=== PATIENT | female | born 1950 | race Caucasian/White ===

== ENCOUNTER → 2017-02-01 | Outpatient (CLI) | payer MEDICARE ==
--- NOTE | 2017-02-02 14:48 | MM ---
Reason for exam: screening (asymptomatic). Last mammogram was performed 1 year and 1 month ago. History: Patient is postmenopausal. Family history of breast cancer in sister at age 68, breast cancer in sister at age 59, and premenopausal breast cancer in mother at age 47. Benign US right guided mammotome of the right breast, August 15, 2007. Benign US right guided mammotome of the right breast, August 15, 2007. Benign excisional biopsy of the right breast, 1995. Took estrogen for 11 years 7 months beginning at age 46. Took progesterone for 11 years 7 months beginning at age 46. Physical Findings: A clinical breast exam by your physician is recommended on an annual basis and results should be correlated with mammographic findings. MG 3D Screening Mammo W/Cad Bilateral CC and MLO view(s) were taken. Prior study comparison: January 11, 2016, bilateral MG 3d screening mammo w/cad. January 06, 2015, bilateral MG screening mammo w CAD. The breast tissue is heterogeneously dense. This may lower the sensitivity of mammography. Finding: There are new calcifications in the lower inner quadrant, middle posterior depth of the right breast. No suspicious abnormality in the left breast. ASSESSMENT: Incomplete: need additional imaging evaluation, BI-RAD 0 RECOMMENDATION: Special view mammogram of the right breast. [facility] will attempt to contact patient to return for supplemental views.
== END | disposition home or self-care (01) ==
LOC: RADMAMWWP 06:59
PROVIDERS: ATTEND Obstetrics & Gynecology
DX: Z12.31 Encounter for screening mammogram for malignant neoplasm of breast (principal)
CPT/HCPCS: 77063; G0202

== ENCOUNTER → 2017-02-07 | Outpatient (CLI) | payer MEDICARE ==
--- NOTE | 2017-02-08 11:42 | MM ---
Reason for exam: additional evaluation requested from abnormal screening. Last mammogram was performed less than 1 month ago. History: Patient is postmenopausal. Family history of breast cancer in sister at age 68, breast cancer in sister at age 59, and premenopausal breast cancer in mother at age 47. Benign US right guided mammotome of the right breast, August 15, 2007. Benign US right guided mammotome of the right breast, August 15, 2007. Benign excisional biopsy of the right breast, 1995. Took estrogen for 11 years 7 months beginning at age 46. Took progesterone for 11 years 7 months beginning at age 46. Physical Findings: Nurse did not find any significant physical abnormalities on exam. MG 3D Work Up W/Cad RT CC and MLO view(s) were taken of the right breast. Prior study comparison: February 01, 2017, bilateral MG 3d screening mammo w/cad. January 11, 2016, bilateral MG 3d screening mammo w/cad. January 06, 2015, bilateral MG screening mammo w CAD. The breast tissue is heterogeneously dense. This may lower the sensitivity of mammography. There is a persistent 5mm mass on additional views in the lower inner quadrant on the left with internal calcifications. These results were verbally communicated with the patient and result sheet given to the patient on 02/07/17. ASSESSMENT: Incomplete: need additional imaging evaluation, BI-RAD 0 RECOMMENDATION: Ultrasound of the right breast.
--- NOTE | 2017-02-08 11:44 | USB ---
Reason for exam: additional evaluation requested from abnormal screening. History: Patient is postmenopausal. Family history of breast cancer in sister at age 68, breast cancer in sister at age 59, and premenopausal breast cancer in mother at age 47. Benign US right guided mammotome of the right breast, August 15, 2007. Benign US right guided mammotome of the right breast, August 15, 2007. Benign excisional biopsy of the right breast, 1995. Took estrogen for 11 years 7 months beginning at age 46. Took progesterone for 11 years 7 months beginning at age 46. US Breast Workup Limited RT Right breast ultrasound demonstrates a 11 x 6 x 4mm solid lesion at 6 o'clock corresponds to mammographic mass. These results were verbally communicated with the patient and result sheet given to the patient on 02/07/17. ASSESSMENT: Highly suggestive of malignancy, BI-RAD 5 RECOMMENDATION: Stereotactic core biopsy of the right breast. (to ensure calcifications) Called Dr. Robbins with mammographic findings and has scheduled an appointment for the patient for 03/07/17 at 1:[address] Jamil. Biopsy scheduled for 02/13/17 at 9:30. PRELIMINARY REPORT CALLED AND FAXED TO DR. JAMIL ON 02/09/17.
== END | disposition home or self-care (01) ==
LOC: RADMAMWWP 07:00
PROVIDERS: ATTEND Obstetrics & Gynecology
DX: R92.8 Other abnormal and inconclusive findings on diagnostic imaging of breast (principal)
CPT/HCPCS: 76642; G0206; G0279

== ENCOUNTER → 2017-02-13 | Day surgery (SDC) | payer MEDICARE ==
[2017-02-13 09:05] VITALS: PULSE 65; BMI 30.6
[2017-02-13 10:23] VITALS: BP 139/84; RESP 16; TEMP 97.5
--- NOTE | 2017-02-13 11:21 | MM ---
EXAMINATION TYPE: MG stereo VAD BX RT DATE OF EXAM: 02/13/2017 COMPARISON: Prior mammogram February 07 and February 01, 2017 and older studies. CLINICAL HISTORY: Abnormal mammogram TECHNIQUE: Stereotactic guided core biopsy of right breast with clip placement and follow-up two-view mammogram. FINDINGS: The procedure of stereotactic guided core biopsy was explained to the patient. Benefits, alternatives, and risks were discussed. An informed consent was then obtained. The shortness pathway for biopsy was chosen. Shortness pathway was inferior approach. I performed the localization, then performed the remainder of the procedure. Overlying skin is cleansed. Lidocaine issues as anesthetic into the skin. Lidocaine with epinephrine is used as anesthetic into the deeper tissue. A vacuum assisted biopsy gun was used to obtain multiple core samples. The patient tolerated the procedure well without any immediate complication. The patient was kept in the radiology department for short stay after the procedure and then discharged home in stable condition. Targeted calcifications are identified in specimen mammogram. Post biopsy mammogram shows the clip to appear in satisfactory position approximately 5 to 7 mm inferior relative to the targeted area of concern on the preprocedure images. IMPRESSION: SUCCESSFUL, UNCOMPLICATED STEREOTACTIC GUIDED CORE BIOPSY OF AREA OF CONCERN IN THE RIGHT BREAST, FULL PATHOLOGY RESULTS TO FOLLOW. Low index of suspicion noted at time of procedure. 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 SEE SURGICAL PATHOLOGY CANCER CASE SUMMARY AND COMMENT. Recommendation Surgical consult of the right breast. Note: 5-7mm inferior migration of the biopsy marker on post procedural mammogram of 02/13/17. MTDD
== END ==
LOC: RADMAMWWP 08:28
PROVIDERS: ATTEND Surgery
DX: D05.11 Intraductal carcinoma in situ of right breast (principal); D24.1 Benign neoplasm of right breast; Z17.0 Estrogen receptor positive status [ER+]
CPT/HCPCS: 88305; 88342; 88341; 19081; A4648; J2001

== ENCOUNTER 2017-04-17 09:14 | Day surgery (SDC) | payer MEDICARE ==
[2017-04-12 15:52] VITALS: BMI 30.4
[~2017-04-17 09:14] MED LIST: HEPARIN SODIUM,PORCINE 5,000 UNIT/ML 1 ML VIAL SQ ONE; Pre Op ABX Message 1 EACH MISC MISCELLANE ONE
[2017-04-17] MEDS ORDERED: ALPRAZolam 0.5 MG TAB PO ONE (09:29)
[2017-04-17] MEDS ORDERED: LACTATED RINGERS 1,000 ML IV ONE ×2 (09:39→13:46)
[2017-04-17] MEDS ORDERED: LIDOCAINE 1% 20 ML VIAL (10MG/ML) FOR IV START INTRADERMA ONE (09:40)
[2017-04-17] MEDS ORDERED: ONDANSETRON 4 MG/2 ML VIAL IVP ONE (09:42)
[2017-04-17] MEDS ORDERED: LIDOCAINE 1% INJ 10MG/ML (20 ML MDV) SQ ONE (10:30)
[2017-04-17] MEDS ORDERED: fentaNYL (PF) 50 MCG/ML 2 ML AMP ONE (11:59)
[2017-04-17] MEDS ORDERED: SUCCINYLCHOLINE CHLORIDE 100 MG/5 ML SYR IV ONE (11:59)
[2017-04-17] MEDS ORDERED: LIDOCAINE 1% INJ 10MG/ML (20 ML MDV) ONE (11:59)
[2017-04-17] MEDS ORDERED: PROPOFOL 10 MG/ML 20 ML VIAL IV ONE (11:59)
[2017-04-17] MEDS ORDERED: MIDAZOLAM 2 MG/2 ML VIAL ONE (11:59)
[2017-04-17] MEDS ORDERED: SODIUM CHLORIDE 0.9% 50 ML with ceFAZolin 2,000 MG IV ONE ×2 (12:15)
[2017-04-17] MEDS ORDERED: NALOXONE 0.4 MG/ML 1 ML VIAL IV PRN (12:50)
--- NOTE | 2017-04-17 12:54 | P.OP ---
Date of Procedure: 04/17/17 Procedure(s) Performed: PREOPERATIVE DIAGNOSIS: Right breast cancer POSTOPERATIVE DIAGNOSIS: Same PROCEDURE: Right Breast wire localization lumpectomy with BioSorb placement SURGEON: Omero EBL: Minimal ANESTHESIA: Sedation plus local COMPLICATIONS: None OPERATIVE PROCEDURE: Patient was placed on the operating room table in the supine position. The patient's breast was prepped and draped in usual sterile fashion. A curvilinear incision was made along the inferior periareolar border. Dissection through the subcutaneous tissues took place inferiorly until the wire was identified. The wire was then brought out through the incision site. I followed the wire down into the breast tissue. The breast tissue around the tip of the wire was fully excised using electrocautery. Our lateral margin felt somewhat indurated. I decided to remove an additional portion of lateral breast tissue labeled new lateral margin. This was sent for permanent sectioning. The specimen was sent for specimen radiogram. The clip was present within the specimen. The subcutaneous tissues were inspected. No bleeding was seen. The BioSorb sizers were utilized. A 2.0 x 3.0 cm BioSorb was placed into the operative site and sutured using 3-0 Vicryl sutures. The subcutaneous tissues were closed using 3-0 Vicryl sutures. The skin was closed using a running 4-0 Monocryl stitch. Steri-Strips and sterile dressings were applied. The lumpectomy specimen was painted the appropriate 6 colors and the new lateral margin was painted on the new lateral outer margin using the Sterling ink. DISPOSITION: Stable to recovery room
[2017-04-17 13:02] VITALS: TEMP 97.7
[2017-04-17 14:01] VITALS: RESP 18
[2017-04-17 14:26] VITALS: BP 125/71; PULSE 59
--- NOTE | 2017-04-17 17:36 | MM ---
EXAMINATION TYPE: MG pre op needle loc RT, MG surgical specimen RT DATE OF EXAM: 04/17/2017 COMPARISON: 02/01/2017 and 02/07/2017 CLINICAL HISTORY: 66-year-old female with biopsy-proven DCIS and papilloma in the right breast. TECHNIQUE: Needle localization with wire placement and surgical excision of area of concern in the 6:00 posterior right breast. FINDINGS: The procedure of needle localization with wire placement and than surgical excision was explained to the patient. Benefits, alternatives, and risks were discussed. An informed consent was then obtained. The shortest pathway for procedure was chosen. Shortest pathway was an inferior approach. The overlying skin was prepped and draped in usual sterile fashion. Lidocaine was used as anesthetic into the skin and subcutaneous tissue up to the level of area of concern. A 5 cm Kopans needle was used. It was placed via an inferior approach under mammographic guidance. Subsequent 90 degrees mammogram show the needle to be in satisfactory position relative to the targeted area. At this point, wire was placed and the needle was withdrawn. The wire was fixed to patient's skin. Images were marked for surgeon. The patient tolerated the procedure well without any immediate complication. The patient was kept in the radiology department for short stay after the procedure and then taken to surgery for surgical excision. The wire and biopsy clip are identified in specimen mammogram. The patient was kept in hospital for short stay after the procedure and then discharged home in stable condition. IMPRESSION: Successful, uncomplicated needle localization with wire placement and surgical excision of biopsy-proven DCIS and papilloma in the 6:00 posterior right breast , full pathology results to follow. Pathology Results: Malignant A. 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 DCIS IS IMMEDIATELY ADJACENT TO THE PURPLE (POSTERIOR) MARGIN, AND MUCH LESS THAN 1 MM FROM THE BLACK/YELLOW (SUPERIOR/MEDIAL) MARGIN. SEE SURGICAL PATHOLOGY CANCER CASE SUMMARY AND COMMENT. B. BREAST, RIGHT, NEW LATERAL MARGIN, EXCISION: BENIGN BREAST WITH FIBROCYSTIC CHANGES INCLUDING CYSTS, FIBROSIS, COLUMNAR CELL HYPERPLASIA, SCLEROSING ADENOSIS, APOCRINE METAPLASIA, CALCIFICATIONS AND RADIAL SCAR. Recommendation Surgical consult of the right breast. ALECIA
== END 2017-04-17 14:36 | disposition home or self-care (01) ==
LOC: OR 09:14
PROVIDERS: ATTEND Surgery
DX: C50.311 Malignant neoplasm of lower-inner quadrant of right female breast (principal); Z17.0 Estrogen receptor positive status [ER+]; I10 Essential (primary) hypertension; Z79.2 Long term (current) use of antibiotics; Z79.899 Other long term (current) drug therapy
CPT/HCPCS: 19301; 15777; 76098; 19281; A4648; J2250; J1644; J2405; J2001; J3010; J0690; J0330; J2704; 88307; 88341; 88342

== ENCOUNTER 2017-05-04 08:11 | Day surgery (SDC) | payer MEDICARE ==
[2017-05-03 09:01] VITALS: BMI 30.4
[~2017-05-04 08:11] MED LIST changes: +DEXAMETHASONE SOD PHOSPHATE 10 MG/ML 1 ML VIAL IV ONE; +LACTATED RINGERS 1,000 ML IV SCH; +MIDAZOLAM 2 MG/2 ML VIAL IV PRN; +MORPHINE SULFATE 4 MG/ML SYRINGE IV PRN; +ONDANSETRON 4 MG/2 ML VIAL IVP ONE
[2017-05-04] MEDS ORDERED: LIDOCAINE 1% 20 ML VIAL (10MG/ML) FOR IV START INTRADERMA ONE (08:52)
[2017-05-04] MEDS ORDERED: fentaNYL (PF) 50 MCG/ML 2 ML AMP ONE (09:42)
[2017-05-04] MEDS ORDERED: LIDOCAINE 1% INJ 10MG/ML (20 ML MDV) ONE (09:42)
[2017-05-04] MEDS ORDERED: SUCCINYLCHOLINE CHLORIDE 100 MG/5 ML SYR IV ONE (09:42)
[2017-05-04] MEDS ORDERED: PROPOFOL 10 MG/ML 20 ML VIAL IV ONE (09:42)
[2017-05-04] MEDS ORDERED: MIDAZOLAM 2 MG/2 ML VIAL ONE (09:42)
[2017-05-04] MEDS ORDERED: ePHEDrine SULFATE/0.9% NACL/PF 50 MG/5 ML SYRINGE IV ONE (09:42)
[2017-05-04] MEDS ORDERED: SODIUM CHLORIDE 0.9% 50 ML with ceFAZolin 2,000 MG IV ONE ×2 (09:56)
[2017-05-04] MEDS ORDERED: BUPIVACAINE (PF) 0.25% 30 ML VIAL SQ ONE (10:20)
[2017-05-04 10:59] VITALS: TEMP 98.8
[2017-05-04] MEDS ORDERED: NALOXONE 0.4 MG/ML 1 ML VIAL IV PRN (11:07)
[2017-05-04] MEDS ORDERED: HYDROcodone/APAP 5-325MG 1 EACH TAB PO PRN (11:07)
--- NOTE | 2017-05-04 11:10 | P.OP ---
Date of Procedure: 05/04/17 Procedure(s) Performed: PREOPERATIVE DIAGNOSIS: Right breast cancer POSTOPERATIVE DIAGNOSIS: Same PROCEDURE: Right breast re-lumpectomy SURGEON: Omero EBL: Minimal ANESTHESIA: Gen. COMPLICATIONS: None OPERATIVE PROCEDURE: Patient was placed in the operative table in the supine position. The right breast was prepped and draped in usual sterile fashion. Using the scalpel the previous scar site was excised sharply and the lumpectomy cavity was dissected and excised. The medial superior and posterior lumpectomy damon were completely excised. A portion of the anterior and inferior damon of the lumpectomy cavity were also removed. The previous BioSorb was removed. A Ligaclip was used to define the lumpectomy cavity circumferentially for radiation oncology. The subcutaneous tissues were then closed using 3-0 Vicryl sutures and the skin using a running 4-0 Monocryl stitch. Steri-Strips and sterile dressings were applied. DISPOSITION: Stable to recovery room
[2017-05-04 12:27] VITALS: BP 109/73; PULSE 58; RESP 18
== END 2017-05-04 12:41 | disposition home or self-care (01) ==
LOC: OR 08:11
PROVIDERS: ATTEND Surgery
DX: C50.311 Malignant neoplasm of lower-inner quadrant of right female breast (principal); Z17.0 Estrogen receptor positive status [ER+]; I10 Essential (primary) hypertension; E78.5 Hyperlipidemia, unspecified; E07.9 Disorder of thyroid, unspecified; Z80.9 Family history of malignant neoplasm, unspecified; Z79.2 Long term (current) use of antibiotics; Z79.899 Other long term (current) drug therapy
CPT/HCPCS: 19301; J2250; J1644; J1100; J2405; J2001; J3010; J0690; J0330; J2704; 88307; 88342

== ENCOUNTER → 2017-10-30 | Outpatient (CLI) | payer MEDICARE ==
--- NOTE | 2017-10-30 11:10 | BD ---
EXAMINATION TYPE: Axial Bone Density DATE OF EXAM: 10/30/2017 CLINICAL HISTORY: Postmenopausal female with history of breast cancer. Height: 64.25 Weight: 168.9 Comparison: Prior DEXA bone scan January 11, 2016 FRAX RISK QUESTIONS: Alcohol (3 or more units per day): no Family History (Parent hip fracture): no Glucocorticoids (More than 3mos): no (Ex: prednisone, prednisolone, methylprednisolone, dexamethasone, and hydrocortisone). History of Fracture in Adulthood: unsure Secondary Osteoporosis: 1. Type 1 Diabetes: no 2. Hyperthyroidism: no 3. Menopause before 45: no, 45 4. Malnutrition: no 5. Chronic liver disease: no Rheumatoid Arthritis: no Current Tobacco Use: no RISK FACTORS HISTORY OF Family History of Osteoporosis: no Active: yes Diet low in dairy products/other sources of calcium: no Postmenopausal woman: yes Take estrogen and/or progesterone medications: not now How long: about 11 1/2 years Lost more than 2 inches in height since high school: states may have been 66 inches tall at one time Frequent falls: no Poor Health: hx breast ca, but otherwise good health Hyperparathyroidism: no Adrenal Insufficiency: no MEDICATIONS: Prednisone or other steroids: no Thyroid Medications: yes Which medication: Levothyroxine How Long: over 10 years Osteoporosis Medications: no Additional Medications: antineoplastic Additional History: Breast CA 2017, radiation EXAM MEASUREMENTS: Bone mineral densitometry was performed using the [employer]. Bone mineral density as measured about the Lumbar spine is: ----- L1-L4(G/cm2): 1.301 T Score Values are as follows: ----- L2: 1.2 ----- L3: 1.9 ----- L4: 0.2 ----- L1-L4: 1.0 Bone mineral density has: Decreased -2.8% since study of: 01/11/2016 Bone mineral density about the R hip (g/cm2): 0.868 Bone mineral density about the L hip (g/cm2): 0.916 T Score values are as follows: -----R Neck: -1.2 -----L Neck: -0.9 -----R Total: -0.5 -----L Total: 0.1 Bone mineral density has: Decreased -2.2% since study of: 01/11/2016 IMPRESSION: Osteopenia (T Score between -2.5 and -1) is now present femoral neck level right hip. Bone density de creased or diminished from prior. There is slightly increased risk of fracture and the patient may be considered for treatment. Re-Screen 2-5 years. NOTE: T-SCORE=SD OF THE YOUNG ADULT MEAN.
== END | disposition home or self-care (01) ==
LOC: RADBDWWP 07:58
PROVIDERS: ATTEND Internal Medicine Hematology & Oncology
DX: D05.11 Intraductal carcinoma in situ of right breast (principal); M85.851 Other specified disorders of bone density and structure, right thigh; Z79.890 Hormone replacement therapy
CPT/HCPCS: 77080

== ENCOUNTER → 2018-02-14 | Outpatient (CLI) | payer MEDICARE ==
--- NOTE | 2018-02-14 12:06 | MM ---
Reason for exam: additional evaluation requested from prior study. Last mammogram was performed 1 year ago. History: Patient is postmenopausal and has history of breast cancer at age 66. Family history of breast cancer in sister at age 68, breast cancer in sister at age 59, and premenopausal breast cancer in mother at age 47. Malignant MG pre op needle loc RT of the right breast, April 17, 2017. Lumpectomy of the right breast, April 17, 2017. Malignant MG stereo VAD BX RT of the right breast, February 13, 2017. Benign US right guided mammotome of the right breast, August 15, 2007. Benign US right guided mammotome of the right breast, August 15, 2007. Benign excisional biopsy of the right breast, 1995. Took estrogen for 11 years 7 months beginning at age 46. Took progesterone for 11 years 7 months beginning at age 46. Physical Findings: Nurse did not find any significant physical abnormalities on exam. MG 3D Diag Mammo W/Cad [facility] Bilateral CC and MLO view(s) were taken. Prior study comparison: February 07, 2017, right breast MG 3d work up w/cad RT. February 01, 2017, bilateral MG 3d screening mammo w/cad. The breast tissue is heterogeneously dense. This may lower the sensitivity of mammography. Left focal asymmetry upper outer quadrant at middle depth that appears improved from priors. Post therapy change on the left. These results were verbally communicated with the patient and result sheet given to the patient on 02/14/18. ASSESSMENT: Incomplete: need additional imaging evaluation, BI-RAD 0 RECOMMENDATION: Ultrasound of the left breast. (upper outer quadrant and upper inner quadrant)
--- NOTE | 2018-02-14 12:08 | USB ---
Reason for exam: additional evaluation requested from abnormal screening. History: Patient is postmenopausal and has history of breast cancer at age 66. Family history of breast cancer in sister at age 68, breast cancer in sister at age 59, and premenopausal breast cancer in mother at age 47. Malignant MG pre op needle loc RT of the right breast, April 17, 2017. Lumpectomy of the right breast, April 17, 2017. Malignant MG stereo VAD BX RT of the right breast, February 13, 2017. Benign US right guided mammotome of the right breast, August 15, 2007. Benign US right guided mammotome of the right breast, August 15, 2007. Benign excisional biopsy of the right breast, 1995. Took estrogen for 11 years 7 months beginning at age 46. Took progesterone for 11 years 7 months beginning at age 46. US Breast Limited LT Left limited breast ultrasound including focal area of concern, retroareolar and axilla demonstrates a lymph node at the axilla, a 0.5 x 0.2 x 0.4cm lesion too small to characterize at 11 o'clock, a 0.4 x 0.3cm lesion too small to characterize at 11 o'clock and a 0.3 x 0.3cm lesion too small to characterize at 4 o'clock. No convincing correlate to mammographic finding. 6 month follow up ultrasound and mammogram recommended. These results were verbally communicated with the patient and result sheet given to the patient on 02/14/18. ASSESSMENT: Probably benign, BI-RAD 3 RECOMMENDATION: Follow-up diagnostic mammogram and ultrasound of the left breast in 6 months.
== END | disposition home or self-care (01) ==
LOC: RADMAMWWP 08:55
PROVIDERS: ATTEND Radiology Radiation Oncology
DX: D05.11 Intraductal carcinoma in situ of right breast (principal); Z85.3 Personal history of malignant neoplasm of breast
CPT/HCPCS: 77066; 76642; G0279; 77062

== ENCOUNTER → 2018-08-16 | Outpatient (CLI) | payer MEDICARE ==
--- NOTE | 2018-08-16 10:33 | USB ---
Reason for exam: follow-up at short interval from prior study. History: Patient is postmenopausal and has history of breast cancer at age 66. Family history of breast cancer in sister at age 68, breast cancer in sister at age 59, and premenopausal breast cancer in mother at age 47. Malignant MG pre op needle loc RT of the right breast, April 17, 2017. Lumpectomy of the right breast, April 17, 2017. Malignant MG stereo VAD BX RT of the right breast, February 13, 2017. Benign US right guided mammotome of the right breast, August 15, 2007. Benign US right guided mammotome of the right breast, August 15, 2007. Benign excisional biopsy of the right breast, 1995. Took estrogen for 11 years 7 months beginning at age 46. Took progesterone for 11 years 7 months beginning at age 46. Physical Findings: Nurse did not find any significant physical abnormalities on exam. US Breast LT Left complete breast ultrasound includes all four quadrants, the retroareolar region and axilla. Finding demonstrates no cystic or solid lesion seen. These results were verbally communicated with the patient and result sheet given to the patient on 08/16/18. ASSESSMENT: Incomplete: need additional imaging evaluation, BI-RAD 0 RECOMMENDATION: Follow-up diagnostic mammogram of the left breast.
--- NOTE | 2018-08-16 10:36 | MM ---
Reason for exam: additional evaluation requested from abnormal screening. Last mammogram was performed 6 months ago. History: Patient is postmenopausal and has history of breast cancer at age 66. Family history of breast cancer in sister at age 68, breast cancer in sister at age 59, and premenopausal breast cancer in mother at age 47. Malignant MG pre op needle loc RT of the right breast, April 17, 2017. Lumpectomy of the right breast, April 17, 2017. Malignant MG stereo VAD BX RT of the right breast, February 13, 2017. Benign US right guided mammotome of the right breast, August 15, 2007. Benign US right guided mammotome of the right breast, August 15, 2007. Benign excisional biopsy of the right breast, 1995. Took estrogen for 11 years 7 months beginning at age 46. Took progesterone for 11 years 7 months beginning at age 46. MG 3D Diag Mammo W/Cad LT CC, MLO, and XCCL view(s) were taken of the left breast. Prior study comparison: February 14, 2018, bilateral MG 3d diag mammo w/cad [facility]. February 07, 2017, right breast MG 3d work up w/cad RT. The breast tissue is heterogeneously dense. This may lower the sensitivity of mammography. Finding: New equal spiculated architectural distortion in the upper inner quadrant, middle position of the left breast. There is no discrete abnormality at previous abnormality. New finding since February 14, 2018 and February 07, 2017. These results were verbally communicated with the patient and result sheet given to the patient on 08/16/18. ASSESSMENT: Probably benign, BI-RAD 3 RECOMMENDATION: Follow-up diagnostic mammogram of both breasts in 6 months. Back on schedule.
== END | disposition home or self-care (01) ==
LOC: RADUSWWP 07:07
PROVIDERS: ATTEND Radiology Radiation Oncology
DX: D05.11 Intraductal carcinoma in situ of right breast (principal); R92.8 Other abnormal and inconclusive findings on diagnostic imaging of breast; Z92.3 Personal history of irradiation
CPT/HCPCS: 77065; 76641; G0279; 77061

== ENCOUNTER → 2018-09-19 | Outpatient (CLI) | payer MEDICARE ==
--- NOTE | 2018-09-20 08:30 | MM ---
Reason for exam: additional evaluation requested from abnormal screening. Last mammogram was performed 1 month ago. History: Patient is postmenopausal and has history of breast cancer at age 66. Family history of breast cancer in sister at age 68, breast cancer in sister at age 59, and premenopausal breast cancer in mother at age 47. Malignant MG pre op needle loc RT of the right breast, April 17, 2017. Lumpectomy of the right breast, April 17, 2017. Malignant MG stereo VAD BX RT of the right breast, February 13, 2017. Benign US right guided mammotome of the right breast, August 15, 2007. Benign US right guided mammotome of the right breast, August 15, 2007. Benign excisional biopsy of the right breast, 1995. Took estrogen for 11 years 7 months beginning at age 46. Took progesterone for 11 years 7 months beginning at age 46. Physical Findings: Breast exam performed July 2018. MG 3D Work Up W/Cad LT Spot compression CC, spot compression MLO, and LM view(s) were taken of the left breast. Prior study comparison: August 16, 2018, left breast MG 3d diag mammo w/cad LT. February 14, 2018, bilateral MG 3d diag mammo w/cad [facility]. The breast tissue is heterogeneously dense. This may lower the sensitivity of mammography. Persistent distortion spot 3D 17/71 CC view, 5.7cm from nipple. Persistent distortion spot 3D 35/64 MLO view, 4.6cm from nipple. Punctate calcification at posterior margin. These results were verbally communicated with the patient and result sheet given to the patient on 09/19/18. ASSESSMENT: Suspicious, BI-RAD 4 RECOMMENDATION: Stereotactic core biopsy of the left breast. Biopsy is recommended, alternatively MRI could be performed to assess for correlate to biopsy under MRI guidance Yajaira from Dr. Stanton's office will call patient on 09/20/18 for further instructions on how to process. PRELIMINARY REPORT CALLED AND FAXED TO DR. STANTON ON 09/20/18.
== END | disposition home or self-care (01) ==
LOC: RADMAMWWP 14:11
PROVIDERS: ATTEND Radiology Radiation Oncology
DX: D05.11 Intraductal carcinoma in situ of right breast (principal); Z92.3 Personal history of irradiation
CPT/HCPCS: 77065; G0279; 77061

== ENCOUNTER 2018-12-27 08:24 | Day surgery (SDC) | payer MEDICARE ==
[2018-12-25 11:40] VITALS: BMI 29.9
[~2018-12-27 08:24] MED LIST changes: -HEPARIN SODIUM,PORCINE 5,000 UNIT/ML 1 ML VIAL SQ ONE; +HYDROmorphone 0.5 MG/0.5 ML SYRINGE IVP PRN; +LIDOCAINE 1% 20 ML VIAL (10MG/ML) FOR IV START INTRADERMA PRN; -MORPHINE SULFATE 4 MG/ML SYRINGE IV PRN; +ONDANSETRON 4 MG/2 ML VIAL IVP PRN
[2018-12-27] MEDS ORDERED: ALPRAZolam 0.25 MG TAB PO ONE (09:14)
--- NOTE | 2018-12-27 09:32 | P.GSHP ---
History of Present Illness H&P Date: 12/27/18 Chief Complaint: Abnormal left mammogram 68-year-old female known to our service. Patient known from previous right breast lumpectomy for malignancy in 2016. On recent mammogram in July the patient was found to have a new spiculated area of distortion left breast. On ultrasound was performed which was negative. Compression views were obtained which showed persistent distortion. Stereotactic biopsy was advised. Patient underwent biopsy at [facility]. Biopsy showed radial scar. Excisional biopsy was recommended. Patient remains on endocrine therapy for her right breast cancer. She does have a significant family history of breast cancer. Patient's genetic screening showed a potentially relevant variant. Patient otherwise asymptomatic. Past Medical History Past Medical History: Cancer, Hyperlipidemia, Hypertension, Thyroid Disorder Additional Past Medical History / Comment(s): RIGHT BREAST CANCER, History of Any Multi-Drug Resistant Organisms: None Reported Past Surgical History: Orthopedic Surgery, Tonsillectomy Additional Past Surgical History / Comment(s): spleenectomy, Right foot surgery, RT BREAST BX, RIGHT BREAST Lumpectomy, COLONOSCOPY, Past Anesthesia/Blood Transfusion Reactions: Postoperative Nausea & Vomiting (PONV) Additional Past Anesthesia/Blood Transfusion Reaction / Comment(s): trouble waking up afer surgery- takes longer to wake up" Smoking Status: Never smoker - Past Family History Mother Family Medical History: Cancer Additional Family Medical History / Comment(s): breast cancer Sister(s) Family Medical History: Cancer Additional Family Medical History / Comment(s): 2 SISTERS WITH BREAST CANCER Medications and Allergies Home Medications Medication Instructions Recorded Confirmed Type Cholecalciferol (Vitamin D3) 2,000 unit PO DAILY 02/09/17 12/27/18 History [Vitamin D3] Levothyroxine Sodium 88 mcg PO DAILY 02/09/17 12/27/18 History Simvastatin [Zocor] 20 mg PO HS 02/09/17 12/27/18 History Triamterene-Hctz 37.5-25Mg 1 each PO DAILY 02/09/17 12/27/18 History [Dyazide 37.5-25 Capsule] Calcium Carbonate/Vitamin D3 1 each PO DAILY 12/25/18 12/27/18 History [Calcium 600-Vit D3 200 Tablet] Letrozole [Femara] 2.5 mg PO DAILY 12/25/18 12/27/18 History Allergies Allergy/AdvReac Type Severity Reaction Status Date / Time adhesive tape Allergy RED Verified 12/27/18 09:02 SKIN,ITCHING Surgical - Exam Vital Signs Temp Pulse Resp BP Pulse Ox 97.8 F 55 L 16 144/76 96 12/27/18 09:06 12/27/18 09:06 12/27/18 09:06 12/27/18 09:06 12/27/18 09:06 Physical exam: General: Well-developed, well-nourished HEENT: Normocephalic, sclerae nonicteric Right breast: Previous lumpectomy, no masses, no adenopathy Left breast: No masses, no adenopathy Abdomen: Nontender, nondistended Extremities: No edema Neuro: Alert and oriented Assessment and Plan (1) Radial scar of breast Narrative/Plan: Will proceed with left breast wire localization biopsy at this time. Risks of bleeding, infection, scarring, numbness, possible for additional surgery reviewed. She understands and wishes to proceed. Current Visit: Yes Status: Acute Code(s): N64.89 - OTHER SPECIFIED DISORDERS OF BREAST SNOMED Code(s): 560104004
[2018-12-27] MEDS ORDERED: LIDOCAINE 1% INJ 10MG/ML (20 ML MDV) SQ ONE (10:17)
[2018-12-27] MEDS ORDERED: MIDAZOLAM 2 MG/2 ML VIAL ONE (10:57)
[2018-12-27] MEDS ORDERED: LIDOCAINE 1% INJ 10MG/ML (20 ML MDV) ONE (10:57)
[2018-12-27] MEDS ORDERED: fentaNYL (PF) 50 MCG/ML 2 ML AMP ONE (10:57)
[2018-12-27] MEDS ORDERED: PROPOFOL 10 MG/ML 20 ML VIAL IV ONE (10:57)
[2018-12-27] MEDS ORDERED: BUPIVACAIN-EPI 0.25%-1:200,000 30 ML VIAL SQ ONE (10:58)
[2018-12-27] MEDS ORDERED: SODIUM CHLORIDE 0.9% 50 ML with ceFAZolin 2,000 MG IV ONE ×2 (11:22)
[2018-12-27] MEDS ORDERED: NALOXONE 0.4 MG/ML 1 ML VIAL IV PRN (11:41)
--- NOTE | 2018-12-27 11:43 | MM ---
EXAMINATION TYPE: MG pre op needle loc LT, MG surgical specimen LT DATE OF EXAM: 12/27/2018 COMPARISON: 09/19/2018 and 08/16/2018 mammograms CLINICAL HISTORY: High risk lesion of the left breast for which needle localization was recommended. TECHNIQUE: Needle localization with wire placement and surgical excision of area of concern in the left breast. FINDINGS: The procedure of needle localization with wire placement and than surgical excision was explained to the patient. Benefits, alternatives, and risks were discussed. An informed consent was then obtained. Preprocedural timeout was performed. The shortest pathway for procedure was chosen. Shortest pathway was lateral to medial approach. The overlying skin was prepped and draped in usual sterile fashion. Lidocaine buffered with bicarbonate was used as anesthetic into the skin and subcutaneous tissue up to the level of area of concern. A 9 cm needle was used. It was placed via a lateral to medial approach under mammographic guidance. Subsequent 90 degrees mammogram show the needle to be in satisfactory position relative to the targeted area. At this point, wire was placed and the needle was withdrawn. The wire was fixed to patient's skin. Images were marked for surgeon. The patient tolerated the procedure well without any immediate complication. The patient was kept in the radiology department for short stay after the procedure and then taken to surgery for surgical excision. Targeted biopsy marker and wire are identified in specimen mammogram. The patient was kept in hospital for short stay after the procedure and then discharged home in stable condition. This was relayed to the OR by the stick roller and 1140 on 12/27/2018. IMPRESSION: Successful, uncomplicated needle localization with wire placement and surgical excision of a biopsy marker denoting the biopsy-proven high risk lesion in the left breast, full pathology results to follow. Pathology Results: Benign LEFT BREAST, NEEDLE LOCALIZATION EXCISION: Scar consistent with previous biopsy site and adjacent fibrocystic changes including focal mild usual type ductal hyperplasia, fibrosis and sclerosing adenosis with microcalcifications. Negative for malignancy. Recommendation Follow up mammogram of the left breast in 6 months. ALECIA
--- NOTE | 2018-12-27 11:43 | P.OP ---
Date of Procedure: 12/27/18 Procedure(s) Performed: PREOPERATIVE DIAGNOSIS: Abnormal left mammogram POSTOPERATIVE DIAGNOSIS: Same PROCEDURE: Left Breast wire localization biopsy SURGEON: Omero EBL: Minimal ANESTHESIA: Sedation plus local COMPLICATIONS: None OPERATIVE PROCEDURE: Patient was placed on the operating room table in the sup ine position. The patient's breast was prepped and draped in usual sterile fashion. A curvilinear incision was made adjacent to the wire entrance site. I followed the wire down into the breast tissue. The breast tissue around the tip of the wire was fully excised using electrocautery. The specimen was sent for specimen radiogram. The clip was present within the specimen. The subcutaneous tissues were inspected. No bleeding was seen. The subcutaneous tissues were closed using 3-0 Vicryl sutures. The skin was closed using a running 4-0 Monocryl stitch. Skin glue was then applied. DISPOSITION: Stable to recovery room
[2018-12-27 11:53] VITALS: TEMP 97.4
[2018-12-27 12:52] VITALS: BP 139/91; PULSE 57; RESP 20
== END 2018-12-27 13:10 | disposition home or self-care (01) ==
LOC: OR 08:24
PROVIDERS: ATTEND Surgery
DX: N60.12 Diffuse cystic mastopathy of left breast (principal); N60.92 Unspecified benign mammary dysplasia of left breast; N60.22 Fibroadenosis of left breast; I10 Essential (primary) hypertension; G47.33 Obstructive sleep apnea (adult) (pediatric); E07.9 Disorder of thyroid, unspecified; E78.5 Hyperlipidemia, unspecified; Z85.3 Personal history of malignant neoplasm of breast; Z80.3 Family history of malignant neoplasm of breast; Z79.890 Hormone replacement therapy; Z79.899 Other long term (current) drug therapy; Z79.811 Long term (current) use of aromatase inhibitors; Z91.048 Other nonmedicinal substance allergy status; Z90.81 Acquired absence of spleen; Z90.89 Acquired absence of other organs; Z98.890 Other specified postprocedural states
CPT/HCPCS: 19125; 88307; 76098; 19281; J2250; J1100; J2405; J0690; J2001; J3010; J2704

== ENCOUNTER → 2019-02-17 | Outpatient (CLI) | payer MEDICARE ==
--- NOTE | 2019-02-19 10:05 | MM ---
Reason for exam: additional evaluation requested from prior study. Last mammogram was performed 5 months ago. History: Patient is postmenopausal and has history of breast cancer at age 66. Family history of breast cancer in sister at age 68, breast cancer in sister at age 59, and premenopausal breast cancer in mother at age 47. Benign MG pre op needle loc LT of the left breast, December 27, 2018. Malignant MG pre op needle loc RT of the right breast, April 17, 2017. Lumpectomy of the right breast, April 17, 2017. Malignant MG stereo VAD BX RT of the right breast, February 13, 2017. Benign US right guided mammotome of the right breast, August 15, 2007. Benign US right guided mammotome of the right breast, August 15, 2007. Benign excisional biopsy of the right breast, 1995. Took estrogen for 11 years 7 months beginning at age 46. Took progesterone for 11 years 7 months beginning at age 46. Physical Findings: Nurse Summary: 1cm nodule in the left breast at 3 o'clock (nurse dw). MG 3D Diag Mammo W/Cad KHOA Bilateral CC and MLO view(s) were taken. LM and XCCL view(s) were taken of the right breast. Prior study comparison: September 19, 2018, left breast MG 3d work up w/cad LT. August 16, 2018, left breast MG 3d diag mammo w/cad LT. The breast tissue is heterogeneously dense. This may lower the sensitivity of mammography. No new suspicious abnormality. BB on left corresponds to recent post excisional change. These results were verbally communicated with the patient on 02/19/19. ASSESSMENT: Benign, BI-RAD 2 RECOMMENDATION: Follow-up diagnostic mammogram of both breasts in 1 year.
== END | disposition home or self-care (01) ==
LOC: RADMAMWWP 08:11
PROVIDERS: ATTEND Radiology Radiation Oncology
DX: R92.8 Other abnormal and inconclusive findings on diagnostic imaging of breast (principal); D05.11 Intraductal carcinoma in situ of right breast; Z92.3 Personal history of irradiation; Z17.0 Estrogen receptor positive status [ER+]
CPT/HCPCS: 77066; G0279; 77062

== ENCOUNTER → 2019-11-03 | Outpatient (CLI) | payer MEDICARE ==
--- NOTE | 2019-11-03 13:05 | BD ---
EXAMINATION TYPE: Axial Bone Density DATE OF EXAM: 11/03/2019 COMPARISON: NONE CLINICAL HISTORY: Height: 5 FT 5 IN Weight: 183 FRAX RISK QUESTIONS: Alcohol (3 or more units per day): NO Family History (Parent hip fracture): NO Glucocorticoids (More than 3mos): NO (Ex: prednisone, prednisolone, methylprednisolone, dexamethasone, and hydrocortisone). History of Fracture in Adulthood: NO Secondary Osteoporosis: 1. Type 1 Diabetes: NO 2. Hyperthyroidism: NO 3. Menopause before 45: NO 4. Malnutrition: NO 5. Chronic liver disease: NO Rheumatoid Arthritis: NO Current Tobacco Use: NO RISK FACTORS HISTORY OF: Active: YES Postmenopausal woman: AGE 45 Take estrogen and/or progesterone medications: TOOK HRT FOR 11 - 12 YEARS NOT NOW MEDICATIONS: Thyroid Medications: YES Which medication: LEVOTHYROXINE How Lon-20 YEARS Additional Medications: BLOOD PRESSURE, CHOLESTEROL MEDS, VIT D, ESTROGEN ISAAK , LEVOTHYROXINE Additional History: BREAST CANCER WITH RADIATION EXAM MEASUREMENTS: Bone mineral densitometry was performed using the [employer] System. Bone mineral density as measured about the Lumbar spine is: ----- L1-L4(G/cm2): 1.307 T Score Values are as follows: ----- L2: 1.5 ----- L3: 1.3 ----- L4: 0.1 ----- L1-L4: 1.1 Bone mineral density has: DECREASED -1.7 % since study of: 2017 Bone mineral density about the R hip (g/cm2): 0.844 Bone mineral density about the L hip (g/cm2): 0.903 T Score values are as follows: -----R Neck: -1.4 -----L Neck: -1.0 -----R Total: -0.7 -----L Total: -0.3 Bone mineral density has: DECREASED -1.7 % since study of: 2017 IMPRESSION: No evidence for osteoporosis or osteopenia. NOTE: T-SCORE=SD OF THE YOUNG ADULT MEAN.
== END | disposition home or self-care (01) ==
LOC: RADBDWWP 09:05
PROVIDERS: ATTEND Internal Medicine Hematology & Oncology
DX: M89.9 Disorder of bone, unspecified (principal); D05.11 Intraductal carcinoma in situ of right breast; Z79.890 Hormone replacement therapy
CPT/HCPCS: 77080

== ENCOUNTER 2019-12-11 06:26 | Day surgery (SDC) | payer MEDICARE ==
[2019-12-09 12:28] VITALS: BMI 30.4
[~2019-12-11 06:26] MED LIST changes: +ALPRAZolam 0.25 MG TAB PO PRN; +ALPRAZolam 0.5 MG TAB PO PRN; +ASPIRIN 325 MG TAB PO STA; +ATORVASTATIN 80 MG TAB PO STA; -DEXAMETHASONE SOD PHOSPHATE 10 MG/ML 1 ML VIAL IV ONE; -HYDROmorphone 0.5 MG/0.5 ML SYRINGE IVP PRN; -LACTATED RINGERS 1,000 ML IV SCH; -LIDOCAINE 1% 20 ML VIAL (10MG/ML) FOR IV START INTRADERMA PRN; -MIDAZOLAM 2 MG/2 ML VIAL IV PRN; +NITROGLYCERIN SL TABS 0.4 MG TAB SUBLINGUAL PRN; -ONDANSETRON 4 MG/2 ML VIAL IVP ONE; -ONDANSETRON 4 MG/2 ML VIAL IVP PRN; -Pre Op ABX Message 1 EACH MISC MISCELLANE ONE; +SODIUM CHLORIDE 0.9% 1,000 ML in EMPTY BAG 1 BAG IV ONE
[2019-12-11 07:00] VITALS: RESP 16; TEMP 98.1
[2019-12-11] MEDS ORDERED: LIDOCAINE 1% INJ 10MG/ML (20 ML MDV) ONE (07:07)
[2019-12-11] MEDS ORDERED: VERAPAMIL 2.5 MG/ML 2 ML AMP ONE (07:07)
[2019-12-11] MEDS ORDERED: fentaNYL (PF) 50 MCG/ML 2 ML AMP ONE (07:26)
[2019-12-11] MEDS ORDERED: fentaNYL (PF) 50 MCG/ML 2 ML AMP IVP ONE (07:30)
[2019-12-11] MEDS ORDERED: LIDOCAINE 1% INJ 10MG/ML (20 ML MDV) SQ ONE (07:33)
[2019-12-11] MEDS ORDERED: HEPARIN SODIUM 1,000 UN/ML (10ML VL) ONE (07:34)
[2019-12-11] MEDS: VERAPAMIL SYRINGE (5 MG/10 ML) INTRAARTER ONE ×2 (07:35→07:43)
[2019-12-11] MEDS ORDERED: HEPARIN SODIUM 1,000 UN/ML (10ML VL) IV ONE (07:43)
[2019-12-11] MEDS ORDERED: IOPAMIDOL-370 125ML BTL INJ ONE (07:44)
[2019-12-11] MEDS ORDERED: RX INFO: IV CONTRAST WAS GIVEN 1 EACH MISC MISCELLANE PRN (07:58)
[2019-12-11] MEDS ORDERED: SODIUM CHLORIDE 0.9% 1,000 ML IV SCH (08:00)
--- NOTE | 2019-12-11 08:20 | LTR ---
12/11/2019 RE: Mary Trevizot Dear Dr. Fu: I had the opportunity to perform cardiac catheterization on Mrs. Suárez at [facility] on 12/11/2019 and a full copy of the procedure note will be forwarded to you. In brief, she was found to have moderate disease involving the ostium of the second diagonal branch, the rest of her vessels have no evidence of high-grade stenosis. Based on those findings, I have recommended continue medical therapy with aggressive risk modifications being initiated. Thank you again for allowing me to participate in this patient's care. Please feel free to call with any questions. Sincerely yours, Paco Bolton M.D. HUSAM / MILLI: [phone] /
--- NOTE | 2019-12-11 08:20 | CC ---
CARDIAC CATHETERIZATION REPORT PROCEDURE PERFORMED: Cardiac catheterization. HISTORY OF PRESENT ILLNESS: Mrs. Suárez is a 69-year-old female with a known history of hypertension, hyperlipidemia, who has been complaining of episodes of chest discomfort. She underwent a stress echocardiogram that showed possible inferior wall ischemia with rate-related left bundle branch block with a low exercise tolerance. In view of that, recommendation was made regarding cardiac catheterization. The procedures, risks, and complication were discussed with the patient who is in full understanding and agreement. PROCEDURE: Patient was brought to labor relations officer in a fasting semi-sedated state. After receiving fentanyl and Benadryl and achieving moderate conscious sedated state, using Xylocaine anesthesia and Seldinger technique a 6-Scottish sheath was introduced in the right radial artery. Selective right and left coronary angiography performed using 5-Scottish 3 1/2 bend right and left Kurtis catheters. Multiple views of the coronary arteries including hemiaxial views were obtained. The right Kurtis catheter was used to cross the aortic valve and left ventricular end-diastolic pressure was calculated. Following that, catheter and sheath were removed. Hemostasis was obtained with deployment of a TR band. There was no immediate complication. Patient was returned to her room in stable condition. Of note, the patient received 4500 units of intravenous heparin as well as intra-arterial verapamil. FINDINGS: Left main: This is a large-sized vessel bifurcating in the left circumflex, left anterior descending artery. Left main coronary artery has no evidence of high-grade stenosis. Left anterior descending artery: This is a large-sized vessel reaching toward the apex, giving rise to 2 diagonal branches of moderate caliber. The second diagonal branch has a 60% plaque at the takeoff. The rest of the vessel has no high-grade stenosis. Left circumflex: This is a nondominant vessel giving rise to 2 obtuse marginal branches. The left circumflex and its branches have no evidence of obstructive coronary artery disease. Right coronary artery: This is a large dominant vessel bifurcating distally in the PDA and posterolateral segment branches. The right coronary artery as well as its branches have no evidence of obstructive coronary artery disease. LEFT VENTRICULOGRAM: Not performed. HEMODYNAMICS: There was no gradient across the aortic valve. The left ventricle end-diastolic pressure was 12-14 mmHg. CONCLUSION: 1. Moderate disease in the second diagonal branch at the ostium. 2. No evidence of high-grade stenosis in the left circumflex and the right coronary artery. RECOMMENDATION: In view of finding anatomy, I recommend continue medical therapy with aggressive risk factor modifications being initiated. Those findings and recommendation were discussed with the patient and her family who are in full understanding and agreement. Duration of sedation is 14 minutes. MMLUCIANAL / IJN: [id number] /
[2019-12-11] MEDS ORDERED: LEVOTHYROXINE 88 MCG TAB PO SCH (09:00)
[2019-12-11] MEDS ORDERED: [UNRECOGNIZED DRUG - OTHER] PO SCH (09:00)
[2019-12-11] MEDS ORDERED: NON FORMULARY DRUG (Cholecalciferol (Vitamin D3) [Vitamin D3] 2,000 UNIT) PO SCH (09:00)
[2019-12-11] MEDS ORDERED: LETROZOLE 2.5 MG TAB PO SCH (09:00)
[2019-12-11] MEDS ORDERED: TRIAMTERENE-HCTZ 37.5-25MG 1 EACH CAP PO SCH (09:00)
[2019-12-11] MEDS ORDERED: MAGNESIUM 500 MG PO SCH (09:00)
[2019-12-11] MEDS ORDERED: CALCIUM CARBONATE PO SCH (09:00)
[2019-12-11] MEDS ORDERED: NON FORMULARY DRUG (Ascorbic Acid [Vitamin C] 1,000 MG) PO SCH (09:00)
[2019-12-11] MEDS ORDERED: VITAMIN D3 PO SCH (09:00)
[2019-12-11] MEDS ORDERED: ASPIRIN 81 MG PO SCH (09:00)
[2019-12-11 09:41] VITALS: BP 115/68; PULSE 60
[2019-12-11] MEDS ORDERED: SIMVASTATIN 20 MG PO SCH (21:00)
== END 2019-12-11 12:45 | disposition home or self-care (01) ==
LOC: CATHCVL 06:26
PROVIDERS: ATTEND Internal Medicine Interventional Cardiology
DX: I25.10 Atherosclerotic heart disease of native coronary artery without angina pectoris (principal); R07.89 Other chest pain; R94.39 Abnormal result of other cardiovascular function study; I10 Essential (primary) hypertension; E78.2 Mixed hyperlipidemia; I44.7 Left bundle-branch block, unspecified; E78.00 Pure hypercholesterolemia, unspecified; C50.919 Malignant neoplasm of unspecified site of unspecified female breast; Z79.899 Other long term (current) drug therapy; Z79.890 Hormone replacement therapy; Z79.811 Long term (current) use of aromatase inhibitors; Z87.891 Personal history of nicotine dependence
CPT/HCPCS: 93458; C1769; C1894; J2001; J3010; J1644; Q9967

== ENCOUNTER → 2020-02-19 | Outpatient (CLI) | payer MEDICARE ==
--- NOTE | 2020-02-19 10:34 | MM ---
Reason for exam: additional evaluation requested from prior study. Last mammogram was performed 1 year ago. History: Patient is postmenopausal and has history of breast cancer at age 66. Family history of breast cancer in sister at age 68, breast cancer in sister at age 59, and premenopausal breast cancer in mother at age 47. Benign MG pre op needle loc LT of the left breast, December 27, 2018. Stereotactic core biopsy, October 03, 2018. Malignant MG pre op needle loc RT of the right breast, April 17, 2017. Lumpectomy of the right breast, April 17, 2017. Malignant MG stereo VAD BX RT of the right breast, February 13, 2017. Benign US right guided mammotome of the right breast, August 15, 2007. Benign US right guided mammotome of the right breast, August 15, 2007. Benign excisional biopsy of the right breast, 1995. Took estrogen for 11 years 7 months beginning at age 46. Took progesterone for 11 years 7 months beginning at age 46. Physical Findings: Nurse did not find any significant physical abnormalities on exam. MG 3D Diag Mammo W/Cad KHOA Bilateral CC and MLO view(s) were taken. Prior study comparison: February 17, 2019, bilateral MG 3d diag mammo w/cad KHOA. September 19, 2018, left breast MG 3d work up w/cad LT. The breast tissue is heterogeneously dense. This may lower the sensitivity of mammography. Benign appearing bilateral calcifications. Asymmetric breast tissue, post surgical scar and clips right breast. No significant new findings when compared with previous films. These results were verbally communicated with the patient and result sheet given to the patient on 02/19/20. ASSESSMENT: Benign, BI-RAD 2 RECOMMENDATION: Follow-up diagnostic mammogram of both breasts in 1 year.
== END | disposition home or self-care (01) ==
LOC: RADMAMWWP 08:15
PROVIDERS: ATTEND Surgery
DX: Z08 Encounter for follow-up examination after completed treatment for malignant neoplasm (principal); Z85.3 Personal history of malignant neoplasm of breast
CPT/HCPCS: 77066; G0279; 77062

== ENCOUNTER → 2021-02-21 | Outpatient (CLI) | payer MEDICARE ==
--- NOTE | 2021-02-21 12:21 | MM ---
Reason for exam: additional evaluation requested from prior study. Last mammogram was performed 1 year ago. History: Patient is postmenopausal and has history of breast cancer at age 66. Family history of breast cancer in sister at age 68, breast cancer in sister at age 59, and premenopausal breast cancer in mother at age 47. Benign MG pre op needle loc LT of the left breast, December 27, 2018. Stereotactic core biopsy, October 03, 2018. Malignant MG pre op needle loc RT of the right breast, April 17, 2017. Lumpectomy of the right breast, April 17, 2017. Malignant MG stereo VAD BX RT of the right breast, February 13, 2017. Benign US right guided mammotome of the right breast, August 15, 2007. Benign US right guided mammotome of the right breast, August 15, 2007. Benign excisional biopsy of the right breast, 1995. Took estrogen for 11 years 7 months beginning at age 46. Took progesterone for 11 years 7 months beginning at age 46. Physical Findings: Nurse did not find any significant physical abnormalities on exam. MG 3D Diag Mammo W/Cad KHOA Bilateral CC, MLO, and XCCL view(s) were taken. Prior study comparison: February 19, 2020, bilateral MG 3d diag mammo w/cad KHOA. February 17, 2019, bilateral MG 3d diag mammo w/cad KHOA. February 14, 2018, bilateral MG 3d diag mammo w/cad KHOA. There are scattered fibroglandular densities. No significant new findings when compared with previous films. These results were verbally communicated with the patient and result sheet given to the patient on 02/21/21. ASSESSMENT: Benign, BI-RAD 2 RECOMMENDATION: Follow-up diagnostic mammogram of both breasts in 1 year.
== END | disposition home or self-care (01) ==
LOC: RADMAMWWP 10:53
PROVIDERS: ATTEND Surgery
DX: R92.2 Inconclusive mammogram (principal); Z85.3 Personal history of malignant neoplasm of breast; Z80.3 Family history of malignant neoplasm of breast
CPT/HCPCS: 77066; G0279; 77062

== ENCOUNTER → 2022-02-22 | Outpatient (CLI) | payer MEDICARE ==
--- NOTE | 2022-02-22 08:10 | MM ---
Reason for Exam: Follow-up at short interval from prior study. Last screening mammogram was performed 12 month(s) ago. Patient History: Menarche at age 11. First Full-Term at age 20. Postmenopausal. Breast cancer, age 66. Previous chest radiation therapy at age 66. Estrogen for 11 years, 7 months, from age 46 until age 57. Progesterone for 11 years, 7 months, from age 46 until age 57. 1995, Benign Excisional Biopsy on the right side. 10/03/2018, Stereotactic Core Biopsy. 04/17/2017, Lumpectomy on the Right side. 12/27/2018, Benign Core Biopsy on the left side. 04/17/2017, Malignant Core Biopsy on the right side. 02/13/2017, Malignant Core Biopsy on the right side. 08/15/2007, Benign Core Biopsy on the right side. 08/15/2007, Benign Core Biopsy on the right side. Sister had breast cancer, age 68. Sister had breast cancer, age 59. Mother had breast cancer, age 47. Prior Study Comparison: 01/02/1996 Screening Mammogram, Unknown. 08/16/2018 Left Diagnostic Mammogram, [facility]. 09/19/2018 Left Diagnostic Mammogram, [facility]. 02/17/2019 Bilateral Diagnostic Mammogram, [facility]. 02/19/2020 Bilateral Diagnostic Mammogram, [facility]. 02/21/2021 Bilateral Diagnostic Mammogram, [facility]. Tissue Density: There are scattered fibroglandular densities. Findings: Analyzed By CAD. Asymmetric diminished size to right breast with surgical clips consistent with prior posttreatment changes redemonstrated. Benign-appearing vascular calcifications bilaterally is redemonstrated. No suspicious new mass or distortion in either breast. Overall Assessment: Benign, BI-RAD 2 Management: Diagnostic Mammogram of both breasts in 1 year. A clinical breast exam by your physician is recommended on an annual basis and results should be correlated with mammographic findings. This exam should not preclude additional follow-up of suspicious palpable abnormalities. Results were given to the patient verbally at the time of exam. Electronically signed and approved by: Todd Ward M.D.
== END | disposition home or self-care (01) ==
LOC: RADMAMWWP 07:42
PROVIDERS: ATTEND Surgery
DX: R92.8 Other abnormal and inconclusive findings on diagnostic imaging of breast (principal); Z78.0 Asymptomatic menopausal state; Z80.3 Family history of malignant neoplasm of breast
CPT/HCPCS: 77066; G0279; 77062

== ENCOUNTER → 2022-05-01 | Outpatient (CLI) | payer MEDICARE ==
[2022-05-01 19:23] LABS: African American GFR (CKD) >90 (>60 ml/min/1.73 sqM); Blood Urea Nitrogen 20 mg/dL (7-17); Non-African American GFR(CKD) 79 (>60 ml/min/1.73 sqM)
--- NOTE | 2022-05-02 08:00 | CT ---
EXAMINATION TYPE: CT abdomen pelvis w con CT DLP: 982.9 mGycm, Automated exposure control for dose reduction was used. DATE OF EXAM: 05/01/2022 8:10 PM COMPARISON: None. CLINICAL INDICATION:Female, 71 years old with history of R11.2 NAUSEA WITH VOMITING, UNSPECIFIED; n/v TECHNIQUE: Standard CT of the abdomen and pelvis following the administration of 80 cc of Isovue 30 0 IV contrast material and oral contrast. Coronal and sagittal reformats were performed. FINDINGS: LOWER CHEST: Left lower lobe linear scarring and/or atelectasis. Mild cardiomegaly. No pericardial ef fusion. ABDOMEN LIVER: Unremarkable GALLBLADDER AND BILE DUCTS: Contracted gallbladder. No biliary duct dilatation. PANCREAS: Unremarkable. SPLEEN: Lobulated appearance of the spleen. ADRENAL GLANDS: Unremarkable. KIDNEYS AND URETERS: No evidence of hydronephrosis or renal calculus. Prominent left extrarenal pelvi s. The kidneys enhance symmetrically without suspicious focal lesion. PELVIS BLADDER: Unremarkable REPRODUCTIVE: Anteverted uterus appears unremarkable. Left adnexal mass with hyperdense component lizandro suring 2.1 cm (series 3, image 59). No definitive macroscopic fat identified. ABDOMEN & PELVIS STOMACH AND BOWEL: Small hiatal hernia, duodenum is unremarkable. No focal wall thickening. The appen yajaira is within normal. Enteric contrast reaches the mid small bowel. No evidence of bowel obstruction. PERITONEUM: No evidence of pneumoperitoneum or free fluid. VASCULATURE: Mild atherosclerotic calcifications are present throughout the abdominal aorta and its b ranches. No evidence of aortic aneurysm. MUSCULOSKELETAL: No acute osseous abnormalities. Mild retrolisthesis of L1 on L2 and L2 on L3. Mild m ultilevel degenerative disc disease. LYMPH NODES: No gross evidence for lymphadenopathy. SOFT TISSUE/ABDOMINAL WALL: Small fat filled umbilical hernia. IMPRESSION: 1. No acute abdominal/pelvic process. 2. Indeterminate left adnexal mass measuring up to 2.1 cm. Further evaluation with pelvic ultrasound is recommended.
== END | disposition home or self-care (01) ==
LOC: RADCTMAIN 17:57
PROVIDERS: ATTEND Internal Medicine Hematology & Oncology
DX: D05.11 Intraductal carcinoma in situ of right breast (principal); Z03.89 Encounter for observation for other suspected diseases and conditions ruled out; N83.8 Other noninflammatory disorders of ovary, fallopian tube and broad ligament; R11.2 Nausea with vomiting, unspecified
CPT/HCPCS: 82565; 84520; 74177; 36415; Q9967

== ENCOUNTER → 2022-05-01 | Outpatient (CLI) | payer MEDICARE ==
--- NOTE | 2022-05-01 12:09 | BD ---
EXAMINATION TYPE: Axial Bone Density DATE OF EXAM: 05/01/2022 COMPARISON: Prior DEXA bone scan 2019 CLINICAL HISTORY: 71 years year old Female. 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 History of Fracture in Adulthood: NO Secondary Osteoporosis: 1. Type 1 Diabetes: NO 2. Hyperthyroidism: NO 3. Menopause before 45: YES 4. Malnutrition: NO 5. Chronic liver disease: NO Rheumatoid Arthritis: NO Current Tobacco Use: NO RISK FACTORS HISTORY OF: Surgery to Spine/Hip(right/left)/Wrist (right/left): NO Family History of Osteoporosis: NO Active: YES Diet low in dairy products/other sources of calcium: NO Postmenopausal woman: YES Take estrogen and/or progesterone medications: NONE NOW Lost more than 2 inches in height since high school: YES Frequent falls: NO Poor Health: GOOD Hyperparathyroidism: NO Adrenal Insufficiency: NO MEDICATIONS: Thyroid Medications: YES Which medication: LEVOTHYROXINE How Long: APPROX 10 YEARS Additional Medications: LEVOTHYROXINE, BLOOD PRESSURE, CHOLESTEROL MEDS, Additional History: EXAM MEASUREMENTS: Bone mineral densitometry was performed using the [employer] System. Bone mineral density as measured about the Lumbar spine is: ----- L1-L4(G/cm2): 1.303 T Score Values are as follows: ----- L1: 1.7 ----- L2: 1.5 ----- L3: 1.1 ----- L4: -0.1 ----- L1-L4: 1.0 Bone mineral density has: DECREASED -0.8 % since study of: 2019 Bone mineral density about the R hip (g/cm2): 0.812 Bone mineral density about the L hip (g/cm2): 0.829 T Score values are as follows: -----R Neck: -1.6 -----L Neck: -1.5 -----R Total: -1.0 -----L Total: -0.6 Bone mineral density has: DECREASED -4.1 % since study of: 2020 FRAX%s: The graph provided illustrates a 10.6 % chance for a major osteoporotic fx and a 1.9 % chance for the hips probability for fx in 10 years time. IMPRESSION: Osteopenia (T Score between -2.5 and -1) remains present. There is slightly increased risk of fracture and the patient may be considered for treatment. Re-Screen 2-5 years. NOTE: T-SCORE=SD OF THE YOUNG ADULT MEAN.
== END | disposition home or self-care (01) ==
LOC: RADBDWWP 11:17
PROVIDERS: ATTEND Internal Medicine Hematology & Oncology
DX: Z03.89 Encounter for observation for other suspected diseases and conditions ruled out (principal); D05.11 Intraductal carcinoma in situ of right breast; M85.89 Other specified disorders of bone density and structure, multiple sites; R11.2 Nausea with vomiting, unspecified; Z78.0 Asymptomatic menopausal state
CPT/HCPCS: 77080

== ENCOUNTER → 2022-05-15 | Outpatient (CLI) | payer MEDICARE ==
--- NOTE | 2022-05-15 15:14 | US ---
EXAMINATION TYPE: US pelvis complete transvag DATE OF EXAM: 05/15/2022 COMPARISON: CT abdomen and pelvis May 01, 2022 CLINICAL HISTORY: R19.00 INTRA-ABD AND PELVIC SWELLING, MASS AND LUM. CT showed left adnexal mass. P atient states having a hx of breast cancer. TECHNIQUE: Transvaginal (TV) and Transabdominal (TA) . Transabdominal sonographic images of the pel vis were acquired. Transvaginal sonographic images were medically necessary to better assess the fol lowing anatomy: Ovaries Date of LMP: Unknown, EXAM MEASUREMENTS: Uterus: 6.1 x 4.0 x 2.1 cm Endometrial Stripe: 0.2 cm 1. Uterus: Anteverted Appears heterogenous and small in size. 2. Endometrium: wnl in size 3. Right Ovary: Obscured by overlying bowel gas 4. Left Ovary: Obscured by overlying bowel gas 5. Bilateral Adnexa: Left adnexal hypoechoic lesion seen, nonperistalsing = 1.8 x 2.0 x 1.6 cm 6. Posterior cul-de-sac: No free fluid Anteverted somewhat small size uterus correlates with patient's chronologic age. Endometrial stripe w ithin normal limits for a postmenopausal age. No free fluid. Left adnexa has 2.0 cm heterogeneous ill -defined hypoechoic area with posterior shadowing seen better on transvaginal images likely correspon ding to area marked on recent CT. Some calcifications are present on CT. Smooth margins on transvagin al investigation with minimal vascular flow. IMPRESSION: Persistent indeterminate 2.0 cm left adnexal presumed ovarian solid lesion. Normal left o vary unlikely given calcifications on CT. Neoplasm needs to be considered. O-Rads 4 lesion. Intermedi ate risk. Advise gynecology oncology referral. Consider pelvic MRI follow-up.
== END | disposition home or self-care (01) ==
LOC: RADUSWWP 13:33
PROVIDERS: ATTEND Internal Medicine Hematology & Oncology
DX: R19.00 Intra-abdominal and pelvic swelling, mass and lump, unspecified site (principal); Z85.3 Personal history of malignant neoplasm of breast
CPT/HCPCS: 76830; 76856

== ENCOUNTER → 2022-07-14 | Outpatient (CLI) | payer MEDICARE | END | disposition home or self-care (01) | LOC: LABWHC1 09:02 | PROVIDERS: ATTEND Surgery | DX: N83.209 Unspecified ovarian cyst, unspecified side (principal) | CPT/HCPCS: 36415; 82378; 86304 ==

== ENCOUNTER → 2023-02-26 | Outpatient (CLI) | payer MEDICARE ==
--- NOTE | 2023-02-26 08:28 | MM ---
Reason for Exam: Follow-up at short interval from prior study. Last screening mammogram was performed 12 month(s) ago. Patient History: Menarche at age 11. First Full-Term at age 20. Postmenopausal. Breast cancer, age 66. Previous chest radiation therapy at age 66. Estrogen for 11 years, 7 months, from age 46 until age 57. Progesterone for 11 years, 7 months, from age 46 until age 57. 1995, Benign Excisional Biopsy on the right side. 10/03/2018, Stereotactic Core Biopsy. 04/17/2017, Lumpectomy on the Right side. 12/27/2018, Benign Core Biopsy on the left side. 04/17/2017, Malignant Core Biopsy on the right side. 02/13/2017, Malignant Core Biopsy on the right side. 08/15/2007, Benign Core Biopsy on the right side. 08/15/2007, Benign Core Biopsy on the right side. Sister had breast cancer, age 68. Sister had breast cancer, age 59. Mother had breast cancer, age 47. Prior Study Comparison: 01/02/1996 Screening Mammogram, Unknown. 02/14/2018 Left Diagnostic Ultrasound, [facility]. 08/16/2018 Left Diagnostic Ultrasound, [facility]. 08/16/2018 Left Diagnostic Mammogram, [facility]. 09/19/2018 Left Diagnostic Mammogram, [facility]. 02/17/2019 Bilateral Diagnostic Mammogram, [facility]. 02/19/2020 Bilateral Diagnostic Mammogram, [facility]. 02/21/2021 Bilateral Diagnostic Mammogram, [facility]. 02/22/2022 Bilateral MG 3D diag mammo w/cad [facility], [facility]. Tissue Density: The breast tissue is heterogeneously dense. This may lower the sensitivity of mammography. Findings: Analyzed By CAD. Pattern appears stable. Multiple surgical clips are within the right breast. Some benign calcifications within the right breast. No suspicious groups of microcalcifications, spiculated or lobular masses, architectural distortion or other secondary signs of malignancy are mammographically apparent. Overall Assessment: Benign, BI-RAD 2 Management: Screening Mammogram of both breasts in 1 year. A negative mammogram report should not preclude additional follow up of suspicious palpable abnormalities. Patient should continue monthly self breast exam. A clinical breast exam by your physician is recommended on an annual basis and results should be correlated with mammographic findings. Electronically signed and approved by: Martínez Pope D.O. Radiologis
== END | disposition home or self-care (01) ==
LOC: RADMAMWWP 08:03
PROVIDERS: ATTEND Surgery
DX: R92.333 Mammographic heterogeneous density, bilateral breasts (principal); Z78.0 Asymptomatic menopausal state; Z85.3 Personal history of malignant neoplasm of breast; Z80.3 Family history of malignant neoplasm of breast
CPT/HCPCS: 77066; G0279; 77062

== ENCOUNTER → 2023-05-02 | Outpatient (CLI) | payer MEDICARE ==
--- NOTE | 2023-05-05 12:45 | MR ---
MRI pelvis with and without contrast HISTORY: 2 cm mass in the left adnexal region identified on prior pelvic ultrasound dated 05/15/[address] abdomen and pelvis dated 05/11/2022. COMPARISON: CT abdomen pelvis dated 05/01/2022, CT abdomen and pelvis dated 05/03/2023 and pelvic ultras ound dated 05/15/2022. TECHNIQUE: Multiecho multiplanar images of the pelvis is obtained with and without contrast. FINDINGS: The small left adnexal region mass seen on multiple prior studies is difficult to distinguish surroun ding bowel loops. It is not clearly identified as a mass separate from bowel loops on the current MRI of the pelvis. Regardless, what was questioned as a mass on the prior studies of May 15 is stabl e on the CT abdomen pelvis dated 05/03/2023. The MRI exam does not distinguish a separate mass from roselyn wel loops but there has been no change in the size of the surrounding structures and no pathological enhancement following IV contrast administration. The uterus is normal in size and there is no intrauterine masses. The endometrial stripe is normal. T here are a few scattered uterine calcifications consistent with mild fibroid changes. There is no pelvic adenopathy or abscess. The visualized bowel loops are normal. There is no free flu id. The osseous structures are intact. IMPRESSION: Questionable 2 cm left adnexal mass versus bowel loop or bowel related mass. The finding is stable co mpared to multiple prior studies have described above. There is no suspicious pelvic mass or adenopat hy on the current exam. As precautionary measure follow transvaginal pelvic ultrasound could be obtai vamsi in 4-6 months is recommended to confirm stability.
== END | disposition home or self-care (01) ==
LOC: RADMRIMAIN 07:45
PROVIDERS: ATTEND Internal Medicine
DX: N94.89 Other specified conditions associated with female genital organs and menstrual cycle (principal)
CPT/HCPCS: 72197; A9585

== ENCOUNTER → 2023-05-03 | Outpatient (CLI) | payer MEDICARE ==
[2023-05-03 16:20] LABS: African American GFR (CKD) >90 (>60 ml/min/1.73 sqM); Blood Urea Nitrogen 17 mg/dL (7-17); Non-African American GFR(CKD) 79 (>60 ml/min/1.73 sqM)
--- NOTE | 2023-05-11 09:03 | CT ---
EXAMINATION TYPE: CT abdomen pelvis w con DATE OF EXAM: 05/03/2023 HISTORY: Ovarian lesion follow up found on prior US. History of breast cancer. CT DLP: 866.2mGycm Automated Exposure Control for Dose Reduction was Utilized. CONTRAST: CT scan of the abdomen and pelvis is performed with IV Contrast, patient injected with 100ml mL of Is ovue 300. COMPARISON: Prior CT May 01, 2022 FINDINGS: LUNG BASES: Linear scarring lateral left lung base redemonstrated. LIVER/GB: Contracted gallbladder again seen. PANCREAS: No significant abnormality is seen. SPLEEN: No significant abnormality is seen. ADRENALS: No significant abnormality is seen. KIDNEYS: No significant abnormality is seen. BOWEL: Oral contrast reaches level of the cecum. No abnormal small or large bowel dilatation. Sigmoid colonic diverticula redemonstrated. Appendix within normal limits from base of cecum. UTERUS/ADNEXA: Anteverted uterus again seen. No suspicious new adnexal masses on CT. Stable left pelv ic partially calcified oval 2.3 x 1.3 cm lesion felt to reflect normal left ovary. Scattered left-makayla ed pelvic phleboliths redemonstrated. LYMPH NODES: No greater than 1cm abdominal or pelvic lymph nodes are appreciated. OSSEOUS STRUCTURES: Multilevel spondylolisthesis and disc space narrowing in the thoracolumbar spine greatest at upper lumbar levels redemonstrated. OTHER: No significant additional abnormality is seen. IMPRESSION: Stable 2.3 x 1.3 cm left pelvic lesion could reflect normal left ovary has been worked up on MRI and ultrasound which are more diagnostic. No new mass or adenopathy identified. No significan t change from most recent CT.
== END | disposition home or self-care (01) ==
LOC: RADCTMAIN 15:40
PROVIDERS: ATTEND Internal Medicine Hematology & Oncology
DX: D05.11 Intraductal carcinoma in situ of right breast (principal); N94.89 Other specified conditions associated with female genital organs and menstrual cycle; E03.9 Hypothyroidism, unspecified; E78.5 Hyperlipidemia, unspecified; I10 Essential (primary) hypertension
CPT/HCPCS: 82565; 84520; 74177; 36415; Q9967

== ENCOUNTER → 2023-10-19 | Outpatient (CLI) | payer MEDICARE ==
--- NOTE | 2023-10-19 11:14 | MR ---
EXAMINATION TYPE: MR pelvis wo/w con DATE OF EXAM: 10/19/2023 7:02 AM CLINICAL INDICATION:Female, 73 years old with history of N94.89 ADNEXAL MASS; COMPARISON: 05/02/2023, CT 05/03/2023 TECHNIQUE: Triplane multisequence imaging was performed of the pelvis. IV Contrast: cc 7.5 cc Gadavist FINDINGS: Reproductive: Vagina: Unremarkable. Uterus: The uterus is anteverted in position. Uterus measures 5.2 x 2.3 x 4.1 cm. The endometrium and junctional zone are within normal limits. Ovaries: Ovaries are atrophic or surgically absent. Bladder: Unremarkable. Bowel: Unremarkable as visualized. There is multiple colonic diverticula in the area of concern seri es 501 image 24 appears to connect to the colon. There are diverticula along somewhat similar appeara nce. Area measures roughly 1.9 x 1.7 cm. Peritoneum: A small amount of free fluid in the pelvis. Lymph nodes: No evidence of adenopathy. Vasculature: Unremarkable. Musculoskeletal: Bone marrow signal is within normal signal intensity. Abdominal wall/soft tissues: Unremarkable. IMPRESSION: Stable left pelvic mass immediately adjacent to a loop of colon possibly representing a colonic diver ticula. No other suspicious masses. If not recently performed consider colonoscopy.
== END | disposition home or self-care (01) ==
LOC: RADMRIMAIN 05:55
PROVIDERS: ATTEND Internal Medicine
DX: N94.89 Other specified conditions associated with female genital organs and menstrual cycle (principal); R19.00 Intra-abdominal and pelvic swelling, mass and lump, unspecified site
CPT/HCPCS: 72197; A9585

== ENCOUNTER → 2024-03-31 | Outpatient (CLI) | payer MEDICARE ==
--- NOTE | 2024-04-01 12:01 | MM ---
Reason for Exam: Screening (asymptomatic). Last mammogram was performed 1 year(s) and 1 month(s) ago. Patient History: Menarche at age 11. First Full-Term at age 20. Postmenopausal. Breast cancer, age 66. Previous chest radiation therapy at age 66. Estrogen for 11 years, 7 months, from age 46 until age 57. Progesterone for 11 years, 7 months, from age 46 until age 57. 1995, Benign Excisional Biopsy on the right side. 10/03/2018, Stereotactic Core Biopsy. 04/17/2017, Lumpectomy on the Right side. 12/27/2018, Benign Core Biopsy on the left side. 04/17/2017, Malignant Core Biopsy on the right side. 02/13/2017, Malignant Core Biopsy on the right side. 08/15/2007, Benign Core Biopsy on the right side. 08/15/2007, Benign Core Biopsy on the right side. Sister had breast cancer, age 68. Sister had breast cancer, age 59. Mother had breast cancer, age 47. Prior Study Comparison: 02/21/2021 Bilateral Diagnostic Mammogram, [facility]. 02/22/2022 Bilateral MG 3D diag mammo w/cad [facility], [facility]. 02/26/2023 Bilateral MG 3D diag mammo w/cad [facility], [facility]. Tissue Density: There are scattered areas of fibroglandular density. Findings: Analyzed By CAD. Right breast surgical clips. Right breast: There is no suspicious group of microcalcifications or new suspicious mass. Benign-appearing calcifications right breast. Left breast: There is no suspicious group of microcalcifications or new suspicious mass. Overall Assessment: Benign, BI-RAD 2 Management: Screening Mammogram of both breasts in [address] [facility] will attempt to contact patient to return for supplemental views and ultrasound if indicated. Patient should continue monthly self-breast exams. A clinical breast exam by your physician is recommended on an annual basis. This exam should not preclude additional follow-up of suspicious palpable abnormalities. Note on Antoinette scores and lifetime risk: 1. A Antoinette score greater than 3% is considered moderate risk. If this is the case, consider specialist referral to assess eligibility for a risk reducing agent. 2. If overall lifetime risk for the development of breast cancer is 20% or higher, the patient may qualify for future screening with alternating mammogram and breast MRI. [facility], , 04/01/2024 11:59 AM. Electronically signed and approved by: Aj Puga DO
== END | disposition home or self-care (01) ==
LOC: RADMAMWWP 12:33
PROVIDERS: ATTEND Obstetrics & Gynecology
DX: Z12.31 Encounter for screening mammogram for malignant neoplasm of breast (principal); Z85.3 Personal history of malignant neoplasm of breast; Z78.0 Asymptomatic menopausal state; Z80.3 Family history of malignant neoplasm of breast; R92.323 Mammographic fibroglandular density, bilateral breasts; Z98.82 Breast implant status
CPT/HCPCS: 77063; 77067